=== PATIENT | male | born 1950 | race Caucasian/White ===

== ENCOUNTER → 2016-09-14 | Outpatient (CLI) | payer MEDICARE, BC ==
[~2016-09-14] MED LIST: OMEP20CA16 PO; OXYC-281 PO; SILYMARIN; [UNRECOGNIZED DRUG - OTHER]; allertec; calcium; coq10; diclofenac PO; glucosamine PO; multi vitamin PO; omega 3 fish oil; vit c; vit d PO
--- NOTE | 2016-09-14 10:29 | RADRPT ---
PROCEDURE: XR right knee. CLINICAL INDICATION: Knee pain TECHNIQUE: AP weightbearing, PA weightbearing, lateral weightbearing and sunrise views are availab le for review. COMPARISON: 02/23/2015 FINDINGS: ORIF of distal femur with 2 transverse screws. There is moderate osteoarthrosis involving the patellofemoral compartment and mild osteoarthrosis in volving the medial tibial femoral compartment and the lateral tibial femoral compartment. This is as sociated with joint space narrowing, subchondral sclerosis and osteophytosis. There is diffuse osteopenia. No fractures are identified. No osseous lesions are identified. The soft tissues are unremarkable. IMPRESSION: ORIF of distal femur with 2 transverse screws. Moderate osteoarthrosis involving the patellofemoral compartment and mild osteoarthrosis involving t he medial tibial femoral compartment and the lateral tibial femoral compartment. RPTAT: [facility] .José Miguel Ragsdale MD, Date Time Electronically viewed and signed by .José Miguel Ragsdale MD, on 09/14/2016 10:29 .B/
== END | disposition home or self-care (01) ==
LOC: HKI 09:48
PROVIDERS: ATTEND Orthopaedic Surgery
DX: M25.561 Pain in right knee (principal); M17.11 Unilateral primary osteoarthritis, right knee; Z96.652 Presence of left artificial knee joint
CPT/HCPCS: 20610; 73564; G0463; J7327

== ENCOUNTER → 2016-10-07 | Outpatient (CLI) | payer MEDICARE, BC ==
--- NOTE | 2016-10-07 14:31 | RADRPT ---
PROCEDURE: XR pelvis/right hip. CLINICAL INDICATION: Hip pain TECHNIQUE: AP pelvis/AP and lateral right hip views performed COMPARISON: 11/25/2015 FINDINGS: Left cemented intramedullary femoral crystal. There is mild bilateral hip osteoarthrosis. This is associated with joint space narrowing, subchondr al sclerosis and osteophytosis. There is lower lumbar degenerative disk disease There is normal mine ralization. No fractures or osseous lesions are identified. The soft tissues are unremarkable. IMPRESSION: Left intramedullary femoral crystal Mild bilateral hip osteoarthrosis. Lower lumbar degenerative disk disease RPTAT: [facility] .José Miguel Ragsdale MD, MD Date Time Electronically viewed and signed by .José Miguel Ragsdale MD, on 10/07/2016 14:31 .B/
== END | disposition home or self-care (01) ==
LOC: HKI 09:44
PROVIDERS: ATTEND Orthopaedic Surgery
DX: M70.61 Trochanteric bursitis, right hip (principal); Z96.652 Presence of left artificial knee joint
CPT/HCPCS: 20610; 73502; G0463; J1030